=== PATIENT | female | born 1970 | race Two or more races ===

== ENCOUNTER → 2024-09-28 | Outpatient (CLI) | payer OTHER, BC, SELFPAY ==
--- NOTE | 2024-09-28 08:45 | XR_ITS ---
Examination: Abdomen sonogram, complete Date and time of exam: September 28, 2024 0905 hours INDICATIONS: Abdominal pain beginning one year ago. Technique: Multiple real-time grayscale transabdominal sonographic images of the abdomen have been obtained. Findings: Normal gallbladder Normal common bile duct 0.2 cm Pancreatic head 2.3 cm Aorta not enlarged. Liver 13.9 cm fatty infiltration smooth contour no focal liver lesions Normal hepatopedal portal venous flow Patent IVC Right kidney 10.3 cm renal cortex 1.1 cm Left kidney 10.1 cm cortex 1.1 cm Mild lower pole left kidney caliectasis Mild bilateral renal parenchymal scar formation Spleen 10.4 cm IMPRESSION: Normal gallbladder Fatty liver Mild calyectasis lower pole calyces left kidney, consider CT scan abdomen pelvis without contrast follow-up
== END | disposition home or self-care (01) ==
PROVIDERS: PCP Family Medicine; Referring Provider Internal Medicine Gastroenterology; Visit Provider Internal Medicine Gastroenterology
DX: K76.0 Fatty (change of) liver, not elsewhere classified (principal)
CPT/HCPCS: 76700